=== PATIENT | male | born 1965 | race Caucasian/White ===

== ENCOUNTER → 2016-10-23 | Outpatient (CLI) | payer BC ==
[2016-10-23 09:08] LABS: HEMOGLOBIN A1C 7.24 % (4.2-6.0)
[2016-10-23 09:19] LABS: BUN/CREATININE RATIO 20.71 (6-20); CALCIUM 9.8 mg/dL (8.7-10.7); CHOL/HDL RATIO 2.73 RATIO (0-4.0); LDL CHOLESTEROL,CALCULATED 37.4 mg/dL; SERUM ALBUMIN 4.7 g/dL (3.5-4.8)
[2016-10-23 09:22] LABS: CREATININE, URINE 121.1 MG/DL (15-500)
== END ==
LOC: LAB 08:31
PROVIDERS: ATTEND Internal Medicine
DX: E11.9 Type 2 diabetes mellitus without complications (principal); E78.5 Hyperlipidemia, unspecified
CPT/HCPCS: 36415; 80053; 80061; 82043; 82550; 83036